=== PATIENT | male | born 1945 | race Caucasian/White ===

== ENCOUNTER 2017-03-22 14:09 | Inpatient (IN) | payer MEDICARE, BC ==
[~2017-03-22] VITALS: Ht 172.7 cm; Wt 120.0 kg
--- NOTE | ~2017-03-22 | EKG ---
PATIENT: CHRISTINA COLLINS UNIT #: [id number] Ventricular Rate: 68 BPM Atrial Rate: 68 BPM P-R Interval: 150 ms QRS Duration: 84 ms Q-T Interval: 448 ms QTC Calculation(Bezet): 476 ms P Pep: 112 degrees Calculated R Pep: -11 degrees Calculated T Pep: 47 degrees Diagnosis Line: Normal sinus rhythm Diagnosis Line: Normal ECG Diagnosis Line: When compared with ECG of 06-JUN-2013 13:16, Diagnosis Line: (unconfirmed) Diagnosis Line: QT has lengthened Diagnosis Line: Confirmed by RUTH MENDIOLA MD ([id number]) on Diagnosis Line: 03/22/2017 5:11:45 PM INTERPRETING MD: MARLENA BUSTILLO
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
--- NOTE | ~2017-03-22 | EKG ---
PATIENT: CHRISTINA COLLINS UNIT #: [id number] Ventricular Rate: 71 BPM Atrial Rate: 71 BPM P-R Interval: 168 ms QRS Duration: 84 ms Q-T Interval: 424 ms QTC Calculation(Bezet): 460 ms P Vichy: 65 degrees Calculated R Vichy: 7 degrees Calculated T Vichy: 40 degrees Diagnosis Line: Normal sinus rhythm Diagnosis Line: Normal ECG Diagnosis Line: When compared with ECG of 23-MAR-2017 05:38, Diagnosis Line: No significant change was found Diagnosis Line: Confirmed by KIKI CIFUENTES MD ([id number]) on Diagnosis Line: 03/24/2017 3:54:16 PM INTERPRETING MD: WON
--- NOTE | ~2017-03-22 | OR ---
Unit #: [id number] #: [id number] Patient: CHRISTINA COLLINS [id number] [address] [place], [place] [address] [id number] I MR#: [id number] NAME: CHRISTINA COLLINS. ROOM: [facility] Date of Procedure: 03/24/2017 Admission Date: 03/22/2017 Surgeon: Faizan Ambrocio Jr., M.D. : 1945 Attending Physician: Rodney Ornelas M.D. OPERATIVE REPORT INDICATIONS FOR PROCEDURE The patient is a 72-year-old white male, who was admitted complaining of severe chest pain, who was worked up noted to have evidence of probably acute cholecystitis with inflammatory changes around the gallbladder, also questioned gallstones. He is brought to the operating room at this time for laparoscopic cholecystectomy, understands the procedure including the risks, including that of common duct injury, biliary leak, and bleeding, and intra-abdominal organ injury, and consents. PREOPERATIVE DIAGNOSES Chronic cholecystitis with cholelithiasis. POSTOPERATIVE DIAGNOSES Acute gangrenous cholecystitis with wrapped gallbladder and also noted was a chronic incarcerated umbilical hernia, multiple adhesions in the lower abdomen. ANESTHESIA General with endotracheal intubation and 0.5% Marcaine with epinephrine locally in the port sites. PROCEDURES PERFORMED Laparoscopic cholecystectomy with lysis of adhesions and drainage of the right upper quadrant. DESCRIPTION OF PROCEDURE The patient was positioned in supine position. After being anesthetized and intubated, he was prepped and draped in routine fashion for laparoscopic cholecystectomy. A small 0.5 cm incision was made in the right lateral abdominal wall area and a 5-mm Optiview was introduced in the abdomen. The abdomen was then inflated with CO2 gas. The camera was introduced in the abdomen. There was no evidence of any injury related to introduction of the port or the camera. The abdomen was inflated and intra-abdominal exploration was carried out. The patient was noted to have multiple adhesions in the lower part of the abdomen as well as chronic incarcerated umbilical hernia and an acute wrapped gallbladder. The camera was then switched to a 5-mm port was placed, which was displaced to the right of the umbilicus under direct visualization and additional 5-mm port was placed in the right lateral abdominal wall area and an 11-mm port just to the right of the upper midline. The wrap was then removed from the gallbladder using hook scissors as well as blunt dissection. The gallbladder was aspirated. Green bile was obtained. The Unit #: [id number] #: [id number] Patient: CHRISTINA COLLINS gallbladder was then lifted and dissection was carried out in the triangle of Calot. There was significant acute inflammation in the area of the triangle of Calot, but the cystic duct was easy to visualize with only approximately 1 to 2 mm in diameter. It was isolated, hemoclipped x4, and divided. The cystic artery was identified, hemoclipped x3, and divided. The gallbladder was then removed from its bed with the hook cautery using a current of 20 and after it was released, it was placed in EndoCatch bag and brought out through the larger port site and the port replaced. Subhepatic space checked. There was a small amount of oozing, which was controlled within the bed of the gallbladder with the hook cautery and after total hemostasis was achieved and the right upper quadrant irrigated, it was felt drain was indicated. A 10 mm Joseph-Soler drain was placed in the subhepatic space and brought out through the lateral port site as routine. After this was complete, again the liver bed was checked. There was no evidence of any significant bleeding. The ports were then removed. CO2 expressed from the abdomen. The port sites were injected with 0.5% Marcaine with epinephrine. The fascia in the larger port site approximated with several [id number] 0 Vicryl sutures. The wounds were irrigated. After hemostasis achieved with Bovie cautery, skin edges were approximated with stainless-steel skin clips and skin stapling device. Sterile dressings were applied externally. Estimated blood loss less than 150 mL. The patient received less than 2000 mL crystalloid solution during the procedure. Sponges and instruments counts were correct x3. There was one 10-mm Joseph-Soler drain used in the subhepatic space on the right and no complications. The patient was taken to the recovery room with stable vital signs in satisfactory condition. Dictated by... Faizan Ambrocio Jr., M.D. JMB/nay TD: 03/24/2017 17:39 JOB #: [id number] CC: Rodney Ornelas M.D. OPERATIVE REPORT Page 1 of 1 X Faizan Ambrocio MD PROCEDURE OPERATIVE NOTE
--- NOTE | ~2017-03-22 | CO ---
Unit #: [id number] #: [id number] Patient: CHRISTINA COLLINS [id number] [address] [place], [place] [address] [id number] I MR#: [id number] NAME: CHRISTINA COLLINS. ROOM: 555 Age: 72 Sex: M Admission Date: 03/22/2017 : 1945 Attending Physician: Rodney Ornelas M.D. CONSULTATION REPORT REASON FOR ADMISSION Chest pain. HISTORY OF PRESENT ILLNESS The patient is a 72-year-old, white male, who is a patient of Dr. Seo, for history of coronary artery disease, status post stent to mid LAD and mid left circumflex in 2013. EF greater than 55% on echo from 2013. Left MCA, CVA status post thrombectomy in 2014 with some residual as well as some weakness, PAF, on chronic Coumadin, hypertension, hyperlipidemia, chronic diastolic heart failure, obesity with recent weight loss, that is planned through diet and exercise, nonsmoker, obstructive sleep apnea in Lexiscan Cardiolite in 06/2016, that showed no ischemia with an EF of 67%. The patient presented to the [facility] ED with complaint of chest pain, that he states woke him up at 1:30 in the morning. Two nights ago, it was a stabbing chest pain to the left chest, that lasted all day and was worse with movement and deep breathing. He also did say he was short of breath, nauseated, and lightheaded, but denied any diaphoresis or syncope. The patient states that he took two nitroglycerin, which did lessen the pain some, but it did not alleviate his pain totally. He also denies having any swelling, fevers, chills, or vomiting. Cardiac cath in September 2013, left circumflex 99% stenosis before the origin of the posterior marginal branch, LAD was 80% to 90%, EF was 60%, where he had a mid LAD stent and a left circumflex stent placed at that time. Echo September 2013 showed left ventricle mildly dilated, mild asymmetric LVH, EF greater than 55%. Right ventricle, mildly dilated. Left atrium, mildly dilated. Mild to moderate MR. Moderate TR. RVSP of 30 to 40 mmHg. Moderate . PAST MEDICAL HISTORY 1. Cardiac cath, September 2013, showed left circumflex 99% before the origin of the first posterior marginal branch. LAD was 90% with an EF of 60%. At that time, the patient had a stent to the LAD as well as left circumflex lesions. 2. Echo, September 2013; LV mildly dilated, mild asymmetric LVH. EF, greater than 55%. RV, mildly dilated. Left atrium, mildly dilated. Mild to moderate MR. Moderate TR. RVSP of 30 to 40. Moderate . 3. Coronary artery disease. 4. Left MCA CVA, status post thrombectomy in 2014 with some dysphagia as well as weakness. 5. PAF, on Coumadin. 6. Hypertension. Unit #: [id number] #: [id number] Patient: CHRISTINA COLLINS 7. Hyperlipidemia. 8. Chronic diastolic heart failure. 9. Obesity with planned weight loss. 10. Nonsmoker. 11. Normal Lexiscan Cardiolite stress test in 06/2016 with an EF of 67%. 12. Obstructive sleep apnea. PAST SURGICAL HISTORY Includes; 1. Left wrist surgery. 2. Skin cancer removed from his face. SOCIAL HISTORY The patient lives at home, where he states the family is there with him. He is a lifelong nonsmoker. He denies any alcohol or illicit drug abuse. The patient states that he does some walking, but very minimal as he does get tired and has to sit down. He uses a cane and a walker, but does not get out for regular exercise. ALLERGIES No known drug allergies. HOME MEDICATIONS 1. Crestor 40 mg p.o. daily. 2. Amantadine 100 mg p.o. twice a day. 3. Propranolol ER 60 mg p.o. daily. 4. Coumadin 5 mg p.o. daily. 5. Lantus 30 units subcutaneous twice a day. 6. Singulair 10 mg p.o. daily. 7. Celexa 20 mg p.o. daily. 8. Zestril 20 mg p.o. daily. REVIEW OF SYSTEMS 10-point review of systems negative except for what is listed above in the HPI. PHYSICAL EXAMINATION GENERAL: This is a 72-year-old, white male, who is alert and oriented x3, in no apparent distress. VITAL SIGNS: Blood pressure 124/60, temperature 98.2, pulse 71, and respirations 19. HEENT: Pupils are equal, round, and reactive. Oral mucosa moist. NECK: No JVD. No thyromegaly. No lymphadenopathy. No carotid bruits. HEART: S1 and S2. No S3 or S4. No clicks, no rubs, no murmurs. CHEST: Reproducible pain to the anterior chest wall on palpation. LUNGS: Clear. ABDOMEN: Soft. Bowel sounds positive. Nontender. Nondistended. EXTREMITIES: Non-swelling. NEUROLOGICAL: No neuro deficits noted. DIAGNOSTIC STUDIES LABORATORY RESULTS: Troponin, less than 0.05, then, less than 0.03 and 0.03. D-dimer 871. BNP 191. White count 18.4, hemoglobin 13, hematocrit 39.6, and platelets are 231. Sodium 135, potassium 3.3, chloride 100, CO2 of 27, glucose 154, BUN 14, and creatinine 0.9. IMAGING STUDIES: CT angio of the chest showed no evidence of PE. Chest x-ray showed mild cardiomegaly, but no active disease. Unit #: [id number] #: [id number] Patient: CHRISTINA COLLINS CARDIOVASCULAR STUDIES: EKG showed sinus rhythm with no acute ST wave abnormalities with a rate of 73. IMPRESSION 1. Chest pain. Most likely, chest wall tenderness as it is reproducible with palpation. 2. Coronary artery disease, status post stent to the mid LAD and mid left circumflex in 2013. 3. LVEF of greater than 55% in 2013. 4. Valvular heart disease with [id number]-bc-[id number] MR, moderate TR, moderate . 5. Coronary artery disease. 6. Left MCA stroke in 2014, status post thrombectomy. 7. Paroxysmal atrial fibrillation, on Coumadin, came in with subtherapeutic INR. 8. Chronic diastolic heart failure. 9. Obesity with planned weight loss. 10. Hypertension and hyperlipidemia. 11. Lifelong nonsmoker. 12. History of normal Lexiscan Cardiolite stress test in 06/2016. 13. Obstructive sleep apnea. PLAN 1. We will obtain a UA and culture as when discussing with the patient. He did complain of some burning with urination. We will obtain 2D echo and Doppler to evaluate the valve and possible worsening of aortic stenosis. We will give potassium supplementation as he is mildly hypokalemic. 2. We will discontinue nitroglycerin paste as this pain is likely not cardiac in nature since it is reproducible to the chest wall with palpation and sharpen in nature. We will restart the patient on Coumadin with a 7.5 mg dose today and continue Lovenox bridge until the patient is therapeutic. Protonix 40 mg p.o. twice a day to see if any of his symptoms are GI related. We will start Tylenol for pain as needed. We will check troponin, CBC, EKG, PT/INR, BMP tomorrow morning. Further recommendations pending the current treatment workup and results of testing. The patient has been discussed about the plan of care and verbalizes understanding. Dictated by... Monet Brooke APRN for Binh Becker/nay TD: 03/24/2017 07:14 JOB #: [id number] CC: Veronica Tapia M.D. Unit #: [id number] #: [id number] Patient: KARINACHRISTINA CONSULTATION REPORT Page 1 of 1 X X CONSULTATION REPORT
--- NOTE | ~2017-03-22 | EKG ---
PATIENT: CHRISTINA COLLINS UNIT #: [id number] Ventricular Rate: 73 BPM Atrial Rate: 73 BPM P-R Interval: 182 ms QRS Duration: 82 ms Q-T Interval: 412 ms QTC Calculation(Bezet): 453 ms P Lapoint: 53 degrees Calculated R Lapoint: 26 degrees Calculated T Lapoint: 46 degrees Diagnosis Line: Normal sinus rhythm Diagnosis Line: Normal ECG Diagnosis Line: When compared with ECG of 22-MAR-2017 14:13, Diagnosis Line: No significant change was found Diagnosis Line: Confirmed by SHEKHAR ASHRAF MD ([id number]) on Diagnosis Line: 03/24/2017 7:12:21 AM INTERPRETING ANTHONY CALIX
--- NOTE | ~2017-03-22 | BMI ---
[facility] Nutrition Therapy DATE: 03/23/17 Patient: CHRISTINA COLLINS Physician: FELICITA Address: [address] [place] [address] Room/Bed: [address] [place] [address], Zip: [place] [address] Admit Date: 03/22/17 Date of : [birth year] Height: 5 8 Weight: 264 120 HIGH BMI NOTE: DX: 72 y/o male admitted for chest pain ANTHROPOMETRICS: ht: 5'8" wt: 264@ (120 kg) BMI 40 DIET: 1. Consistent carbohydrate INTERVENTION: 1. Consistent carbohydrate diet RECOMMENDATIONS: 1. Add Healthy Heart to current Consistent Carbohydrate diet order in order to promote gradual weight loss towards a healthy BMI. RD will f/u per protocol. Respectfully, BELLE ANRDES, commercial intern Ella Fontanez RD, LD Food and Nutritional Services [facility] cc: client file
--- NOTE | ~2017-03-22 | DS ---
Unit #: [id number] #: [id number] Patient: CHRISTINA COLLINS [id number] [address] [place], [place] [address] [id number] I MR#: [id number] NAME: CHRISTINA COLLINS. ROOM: 555 Age: 72 Sex: M Admission Date: 03/22/2017 : 1945 Discharge Date: 03/27/2017 Attending Physician: Rodney Ornelas M.D. Primary Care Physician: No Primary Care Physician DISCHARGE SUMMARY PRINCIPAL DISCHARGE DIAGNOSES 1. Acute cholecystitis with gangrene. 2. Status post laparoscopic cholecystectomy, March 24, 2017. 3. Atypical chest pain. 4. Moderate aortic stenosis. 5. Pulmonary hypertension. 6. Coronary artery disease. 7. Paroxysmal atrial fibrillation. 8. Hypertension. 9. Chronic diastolic congestive heart failure. 10. Mild mitral stenosis. 11. Old cerebrovascular accident. 12. Morbid obesity. 13. Type 2 diabetes mellitus. PROCEDURE Laparoscopic cholecystectomy, March 24, 2017. CONSULTANTS 1. Dr. Tapia from cardiology. 2. Dr. Ambrocio from [facility]. REASON FOR HOSPITALIZATION A 72-year-old obese white male with history of coronary artery disease, type 2 diabetes mellitus, mitral regurgitation, aortic stenosis, old CVA, expressive dysphagia, diastolic CHF, hyperlipidemia, hypertension, paroxysmal atrial fibrillation, noncompliant with Coumadin therapy presented to the emergency room with two episodes of chest pain, one relieved with nitroglycerin. Pain was very atypical. It was basically his entire anterior chest and at the abdominal area. It seemed to be worse with deep breath, increased with range of motion. He had no trauma, no hemoptysis, fever, cough, shortness of air, or any other symptoms associated with it. In the ER, his EKG and cardiac enzymes were normal. D-dimer was elevated. CT scan was performed and the patient was admitted. HOSPITAL COURSE The patient was placed on full-dose Lovenox pending results of his CT scan and followup cardiac enzymes. Cardiac enzymes remained within normal limits. CT angiogram of the chest showed no pulmonary embolism or dissection. There was a hydropic gallbladder containing stones and a trace amount of left pleural fluid as well as calcification of the LAD. At that point, [facility] were consulted. His CBC suddenly showed a white count of 18.2, again consistent with an infected gallbladder. He underwent gallbladder ultrasound that showed the Unit #: [id number] #: [id number] Patient: CHRISTINA COLLINS gallbladder to be distended measuring 5.9 cm. There was abnormal wall thickening of about 6 mm, trace amount of fluid. Gallstones were not seen on the ultrasound, felt to be secondary to gas artifact. In any case, the patient was seen by cardiology, okayed for surgery. Echo was performed, technically difficult study, EF 55%, mild dilation of the left atrium, mildly enlarged right atrium, moderately dilated right ventricle, calcified aortic leaflets with moderate aortic stenosis, [id number]-[id number] tricuspid regurgitation, heavy mitral annular calcifications with mild mitral stenosis, right ventricular systolic pressure 57. Patient then underwent surgery on the . He tolerated surgery well. He had a low blood sugar last night and his insulin has been adjusted. His blood pressure is somewhat high this morning and is being addressed before discharge. If his blood pressure comes down after clonidine and increase in dose of Zestril, he will be discharged home. He will be on a healthy heart diet as tolerates. DISCHARGE MEDICATIONS 1. Coumadin 5 mg daily. 2. Celexa 20 mg daily. 3. Amantadine 100 mg b.i.d. 4. Inderal LA 60 mg daily. 5. Crestor 40 mg daily. 6. Zestril 40 mg daily. 7. Lantus 30 units subcutaneous q.a.m. and 20 subcutaneous q.p.m. 8. Singulair 10 mg daily. 9. Enteric coated aspirin 81 mg daily. 10. Prescription for Percocet 5/325 one q.4 hours p.r.n. for pain #18 with no refills. FOLLOWUP Followup in the office next week with a pro time. He will follow up with Dr. Ambrocio in his office in one week. Dictated by... Rodney Ornelas M.D. RENNY/carine TD: 03/27/2017 12:56 JOB #: [id number] DISCHARGE SUMMARY Page 1 of 1 X Rodney Ornelas MD X DISCHARGE SUMMARY
--- NOTE | ~2017-03-22 | CT16 ---
[facility] A Service of [facility] & [facility] / [facility] RADIOLOGY TEXT RESULTS PATIENT: CHRISTINA COLLINS LOCATION: B 555-01 : 46 UNIT #: [id number] AGE: [address]: Rodney Ornelas MD SEX: M ORDER DR: [id number] [facility] [address]. [place], [place] [address] [id number] MR#: [id number] Acc #: [id number] NAME: CHRISTINA COLLINS. : 1945 SEX: M STUDY DATE/TIME: 03/22/2017 21:19 UNIT: [facility] ROOM: [facility] STUDY DESCRIPTION: CT Angio Chest for PE Attending Physician: Rodney Ornelas M.D. Ordering Physician: Booker Qureshi D.O. Primary Care Physician: No Primary Care Physician MEDICAL IMAGING REPORT This report is preliminary unless electronic signature is present EXAM Chest CTA 03/22/2017 at 2119 INDICATION Elevated D-dimer today. Chest pain that started this morning. TECHNIQUE Axial images were obtained through the chest following IV contrast administration. 3D reformats were obtained. This CT exam was performed with one or more of the following radiation dose reduction techniques: Automatic exposure control, adjustment of mA and/or kV according to patient size, and iterative reconstruction. COMPARISON Comparison made with 10/12/2013. FINDINGS There is no pulmonary embolism or aortic dissection. There is atherosclerotic disease and coronary artery disease. Coronary artery disease is particularly evident in the LAD. No adenopathy is seen. There is cardiomegaly. No pericardial effusion. There is a trace amount of left pleural fluid. There is some dependent atelectasis in both lung bases. Granulomatous calcifications noted in the lingula. Upper abdomen shows a hydropic gallbladder containing stones. There is a trace amount of free fluid adjacent to the liver. Followup with gallbladder ultrasound is recommended. IMPRESSION 1. No pulmonary embolism or aortic dissection. 2. Hydropic gallbladder containing stones. Trace amount of free fluid adjacent to the liver. Gallbladder ultrasound is recommended for follow up as cholecystitis is not excluded. 3. Atherosclerotic disease with coronary artery disease, [facility] A Service of [facility] / [facility] RADIOLOGY TEXT RESULTS PATIENT: CHRISTINA COLLINS LOCATION: C5 555-01 : 46 UNIT #: [id number] AGE: [address]: oRdney Ornelas MD SEX: M ORDER DR: particularly in the LAD. 4. A trace amount of left pleural fluid. Dictated by... Jt Arevalo Jr., M.D. THIS IS AN ELECTRONICALLY VERIFIED REPORT Jt Arevalo Jr., M.D. at 03/23/2017 9:33 PM RACHEL/fran TD: 03/23/2017 09:31 JOB #: [id number] MEDICAL IMAGING REPORT Page 1 of 1 COPY
--- NOTE | ~2017-03-22 | CR72 ---
[facility] A Service of [facility] & [facility] RADIOLOGY TEXT RESULTS PATIENT: CHRISTINA COLLINS LOCATION: [facility] [id number] : 46 UNIT #: [id number] AGE: [address]: Rodney Ornelas MD SEX: M ORDER DR: [id number] [facility] [address]. [place], [place] [address] [id number] I MR#: [id number] Acc #: [id number] NAME: CHRISTINA COLLINS. : 1945 SEX: M STUDY DATE/TIME: 03/22/2017 15:15 UNIT: [facility] ROOM: [facility] STUDY DESCRIPTION: CR Chest Single View Portable Attending Physician: Rodney Ornelas M.D. Ordering Physician: Booker Qureshi D.O. MEDICAL IMAGING REPORT This report is preliminary unless electronic signature is present EXAM Portable chest HISTORY Chest pain for the past day TECHNIQUE Single AP view of the chest was obtained compared with 07/09/2016 FINDINGS Heart size is mildly enlarged. The aorta is mildly ectatic. Both lungs are fully expanded clear with normal vascular markings and no pleural fluid is seen. IMPRESSION Mild cardiomegaly. No active disease Dictated by... Jt Zazueta M.D. THIS IS AN ELECTRONICALLY VERIFIED REPORT Jt Zazueta M.D. at 03/23/2017 6:59 AM EREN/aramis TD: 03/22/2017 22:39 JOB #: [id number] MEDICAL IMAGING REPORT Page 1 of 1 COPY
--- NOTE | ~2017-03-22 | CO ---
Unit #: [id number] #: [id number] Patient: CHRISTINA COLLINS [id number] [address] [address] [id number] I MR#: [id number] NAME: CHRISTINA COLLINS. ROOM: 555 Age: 72 Sex: M Admission Date: 03/22/2017 : 1945 Attending Physician: Rodney Ornelas M.D. Primary Care Physician: Primary Care Physician No Consultation Date: 03/23/2017 CONSULTATION REPORT REASON FOR CONSULTATION 1. Upper abdominal pain. 2. Cholelithiasis. 3. Possible cholecystitis. Thank you very much for asking us to see Mr. Collins. HISTORY OF PRESENT ILLNESS He is a 72-year-old white male, who was admitted on 03/22/2017. He presents with 36- to 48-hour history of lower chest pain and upper abdominal pain. It is worse with a deep breath. It is worse with motion. He has no GI bleeding. No or pulmonary symptoms. Denies any hemoptysis. He denies any jaundice. He was evaluated in the emergency room and a CT angiogram revealed the patient to have no pulmonary embolism or aortic dissection, but was found to have a hydropic gallbladder containing gallstones. There is a trace amount of free pericholecystic fluid. He presents at this time for further evaluation and treatment. ALLERGIES No known medical allergies. MEDICATIONS Please see med rec sheet. PAST SURGICAL HISTORY 1. Cardiac catheterization with angioplasty. 2. Tonsillectomy. 3. Repair of liver laceration per the chart, but the patient denies any abdominal surgery. PAST MEDICAL HISTORY Coronary artery disease, hypertension, CVA, diabetes, morbid obesity, hyperlipidemia, paroxysmal atrial fibrillation, mitral regurgitation, aortic stenosis. SOCIAL HISTORY No tobacco or alcohol use. FAMILY HISTORY Noncontributory. IMMUNIZATION STATUS Unknown. PHYSICAL EXAMINATION Unit #: [id number] #: [id number] Patient: CHRISTINA COLLINS GENERAL: Well-developed, well-nourished white male, in no apparent distress. VITAL SIGNS: Afebrile. Vital signs stable. NECK: Supple. No thyromegaly or adenopathy. HEENT: Sclerae nonicteric. Extraocular movements are intact. BACK: No CVA or spinous tenderness. ABDOMEN: Examination of the patient's abdomen revealed it to be nontender in the lower abdomen on the left side, but tender in the right upper quadrant with mild guarding, but no rebound, peritoneal signs, or masses. EXTREMITIES: The patient has some venous stasis disease in the right lower extremity, but no other erythema or induration. DIAGNOSTIC STUDIES LABORATORY RESULTS: CMP reveals the patient to have a glucose of 154, BUN 14, creatinine 0.9, potassium 3.3 and normal liver function studies. The patient's PT and PTT is 12 and 31.2. White count is 18.4 with a hemoglobin of 13 and hematocrit 39.6. IMPRESSION A 72-year-old white male with right upper quadrant pain and discomfort as well as on CT scan, a hydropic gallbladder with gallstones and small amount of pericholecystic fluid. We feel that the patient most likely has cholecystitis. We have recommended Zosyn 3.375 g IV piggyback q.6 hours. Hold Lovenox for now, discontinue Coumadin and we will proceed with laparoscopic cholecystectomy tomorrow. The patient is eaten today. All the risks and benefits of the procedure have been fully explained to the patient in detail including the risk of bleeding, infection, common bile duct injury, choledochojejunostomy, conversion to an open procedure, transfer, , and other risks. He understands completely and requests to proceed. Dictated by... Binh Soares/nay TD: 03/23/2017 17:25 JOB #: [id number] CC: [facility] Veronica Tapia M.D. CONSULTATION REPORT Page 1 of 1 X Denzel Zavala MD X CONSULTATION REPORT
--- NOTE | ~2017-03-22 | HP ---
Unit #: [id number] #: [id number] Patient: CHRISTINA COLLINS [id number] [address] [place], [place] [address] [id number] I MR#: [id number] NAME: CHRISTINA COLLINS. ROOM: 555 Age: 72 Sex: M Admission Date: 03/22/2017 : 1945 Attending Physician: Rodney Ornelas M.D. Primary Care Physician: No Primary Care Physician HISTORY AND PHYSICAL HISTORY OF PRESENT ILLNESS 72-year-old, obese, white male with a history of coronary artery disease, type 2 diabetes mellitus, mitral regurgitation, aortic stenosis, old CVA, expressive dysphasia, diastolic CHF, hyperlipidemia, hypertension, paroxysmal atrial fibrillation, was supposed to be on Coumadin but is noncompliant with his protimes so eventually discontinued it. In any case, he presents to the emergency room with two episodes of chest pain, relieved with nitroglycerin. He states the chest pain started on the day of admission. It is in his entire chest and upper abdominal area. It is increased with a deep breath, increased with range of motion, increased doing sit-ups. He has had no trauma. He has no hemoptysis, fever or cough, shortness of air or any other symptoms associated with it. In the ER, his EKG and cardiac enzymes were normal. D-dimer was elevated. CT angiogram was done but there is no report anywhere in the handwritten notes or in [facility] and the patient is admitted. ALLERGIES He has no known drug allergies. MEDICATIONS His meds prior to admission: 1. Crestor 40 mg daily. 2. Amantadine 100 mg b.i.d. 3. Inderal LA 60 mg daily. 4. Coumadin, which he is off of. 5. Lantus 30 units subcu b.i.d. 6. Singulair 10 mg daily. 7. Celexa 20 mg daily. 8. Zestril 20 mg daily. 9. He is supposed to also be on enteric coated aspirin 81 mg daily. PAST SURGICAL HISTORY 1. He has a history of cardiac cath with angioplasty x2. 2. Tonsillectomy. 3. Liver laceration that was repaired. PAST MEDICAL HISTORY 1. Coronary artery disease. 2. Hypertension. 3. CVA with expressive dysphasia. 4. Type 2 diabetes mellitus. 5. Morbid obesity. 6. Hyperlipidemia. 7. Diastolic CHF. Unit #: [id number] #: [id number] Patient: CHRISTINA COLLINS 8. Paroxysmal atrial fibrillation. 9. Mitral regurgitation. 10. Aortic stenosis. SOCIAL HISTORY Retired, single. Nonsmoker, nondrinker. No street drug use. FAMILY HISTORY Noncontributory. PHYSICAL EXAMINATION GENERAL: He is awake, alert, oriented x3, in no acute distress. VITAL SIGNS: Afebrile. Pulse 71, respirations 18, blood pressure 124/60, O2 sat 96% on room air. HEENT: Unremarkable. NECK: Supple without JVD, bruits, adenopathy or thyromegaly. CHEST: Clear to auscultation. Tender in the parasternal area and epigastric area diffusely without any rash or bruising. HEART: Regular rate and rhythm with a 3/6 systolic murmur best appreciated at the apex and left upper sternal border. ABDOMEN: Soft, nondistended. Tender in the epigastric area without any guarding or rebound tenderness. Positive bowel sounds and no hepatosplenomegaly. EXTREMITIES: 1+ pitting edema of the right lower extremity with multiple superficial wounds, one on the left top of his right foot and anterior archuleta without any evidence of infection. /RECTAL: Deferred. NEUROLOGICAL: Within normal limits except for the expressive dysphasia. DIAGNOSTIC STUDIES LABORATORY: Cardiac enzymes normal x4 sets. CBC normal. PT and PTT normal. Sodium 133, blood sugar 144, albumin 3.4, BNP 191, D-dimer 871. CARDIOVASCULAR: EKG - within normal limits x2. IMAGING: Chest x-ray - mild cardiomegaly. No active disease. CT angiogram of the chest - no report. IMPRESSION 1. Atypical chest pain which seems to be musculoskeletal. 2. History of coronary artery disease with angioplasty x2. 3. Mitral regurgitation. 4. Aortic stenosis. 5. Hypertension. 6. Obesity. 7. Type 2 diabetes mellitus. 8. Paroxysmal atrial fibrillation. 9. Old CVA. PLAN Review CT scan of the chest. Cardiology is to consult. Note that he had a negative Cardiolite in June of 2016. I am not sure if they are going to repeat this, do a cath or otherwise. May even an echo since it has been awhile since he had one. Further evaluation pending results of Unit #: [id number] #: [id number] Patient: CHRISTINA COLLINS the above. Dictated by Binh Mena/roosevelt TD: 03/23/2017 07:56 JOB #: [id number] HISTORY AND PHYSICAL Page 1 of 1 X Rodney Ornelas MD X HISTORY AND PHYSICAL
[~2017-03-22 14:09] MED LIST: ACETAMINOPHEN PO; ALLEGRA180 MG PO; AMANTADINE100 M1 PO; ASPIRIN PO; ASPIRIN81 M1 PO; ASPIRIN81 MG PO; BACTROBAN15 GM TOP; CAPMIST DM TAB1 EACH PO; CELEXA20 MG PO; CLARITIN10 MG PO; COLACE PO; COMBIVENT INH14.7 GM INH; COUMADIN PO; COUMADIN3 MG PO; COUMADIN5 MG PO; FLOMAX0.4 M1 PO; GLUCOSAMINE; HUMULIN N SUBQ; HUMULIN N VIAL SUBQ; HUMULIN N100 U/ML SQ; HUMULIN N300 U/3 ML; HUMULIN R100 U/ML SUBQ; INDERAL LA60 M1 PO; KEFLEX PO; LANTUS100 U/ML SUBQ; LASIX PO; LASIX80 MG PO; LEVAQUIN PO; LIPITOR40 MG PO; LISINOPRIL10 MG PO; LISINOPRIL20 MG PO; LOMOTIL TABLET1 TAB PO; LOPRESSOR PO; METOPROLOL TAR25 MG PO; MIRALAX; MUCINEX DM1 TAB.SR . PO; MYCOSTATIN15 GM POW EXT; NAPROXEN PO; NITROGLYGERIN0.4 MG SL; NON-ASPIRIN325 MG PO; NOVOLIN N100 U/ML SUBQ; NOVOLIN R100 U/ML; NOVOLIN R100 U/ML SUBQ; NOVOLOG FL100 UNIT/1 SUBQ; NOVOLOG100 U/ML SUBQ; PLAVIX PO; PREDNISONE PO; PRIMIDONE50 MG PO; PROAIR HFA8.5 GM; SERTRALINE HCL100 MG PO; SIMVASTATIN80 MG PO; SINGULAIR PO; SPIRIVA18 MCG INH; SYMBICORT INH; ZAROXOLYN5 MG PO; ZESTORETIC 20-1 EACH PO; ZESTORETIC 20/21 TAB PO; ZETIA PO; ZOCOR PO; ZOLOFT PO
[2017-03-22 16:29] LABS: BASOPHIL# 0.1 X10e3 (0-0.3); BASOPHIL% 0.8 % (0-2.5); EOSINOPHIL# 0.3 X10e3 (0-0.7); EOSINOPHIL% 2.9 % (0.0-7.0); HEMATOCRIT 40.4 % (38.0-50.0); HEMOGLOBIN 13.3 gm/dL (13.0-16.0); LYMPHOCYTE% 20.8 % (17.0-45.0); MEAN CELL VOLUME 82.6 FL (83-96); MEAN CORPUSCULAR HEMOGLOBIN 27.3 PG (28-34); MEAN PLATELET VOLUME 8.5 FL (6.5-11.5); MONOCYTE% 9.9 % (3.0-12.0); NEUTROPHIL# 6.4 X10e3 (1.5-7.1); NEUTROPHIL% 65.6 % (40-75); PLATELET COUNT 244 X10e3 (140-420); RED BLOOD COUNT 4.89 X10e (3.90-5.60); RED CELL DISTRIBUTION WIDTH 16.2 % (11.0-15.5); WHITE BLOOD COUNT 9.7 X10e3 (4.0-10.5)
[2017-03-22 16:39] LABS: POC - CKMB 3.7 ng/mL (0.0-7.9); POC - TROPONIN <0.05 ng/mL (<=0.05)
[2017-03-22 16:47] LABS: DIFF IND NO
[2017-03-22 16:51] LABS: INR 1.1; PARTIAL THROMBOPLASTIN TIME 31.2 SECONDS (23.5-31.3)
[2017-03-22 17:13] LABS: ALBUMIN SERUM 3.4 g/dL (3.5-5.0); BILIRUBIN, DIRECT 0.2 mg/dL (0.0-0.2); BILIRUBIN,INDIRECT 0.4 mg/dL (0.0-0.9); BILIRUBIN,TOTAL 0.6 mg/dL (0.2-2.0); CALCIUM SERUM 8.5 mg/dL (8.4-10.2); GLOM FILT RATE Estimated 75.4 mL/min (>60); POTASSIUM 3.5 mmol/L (3.5-5.1); PROTEIN TOTAL SERUM 6.9 g/dL (6.0-8.3)
[2017-03-22 17:51] LABS: POC - TROPONIN <0.05 ng/mL (<=0.05)
[2017-03-22] MEDS ORDERED: COUMADIN PO (18:00)
[2017-03-22] MEDS ORDERED: AMANTADINE HCL100 MG PO (18:00)
[2017-03-22] MEDS ORDERED: PATIENT'S PHARMACY (18:00)
[2017-03-22] MEDS ORDERED: INDERAL LA PO (18:00)
[2017-03-22] MEDS ORDERED: CRESTOR PO (18:00)
[2017-03-22] MEDS ORDERED: LANTUS SOL100 UNIT/1 SUBQ (18:00)
[2017-03-22] MEDS ORDERED: CELEXA20 M1 PO (18:01)
[2017-03-22] MEDS ORDERED: SINGULAIR PO (18:01)
[2017-03-22] MEDS ORDERED: LISINOPRIL PO (18:01)
[2017-03-22 23:25] LABS: %MB 2.9 % (0.0-4.0); MB 2.1 ng/ml
[2017-03-23 05:42] LABS: CK TOTAL 43 IU/L (36-174)
[2017-03-23 07:11] LABS: BASOPHIL% 0.2 % (0-2.5); HEMATOCRIT 39.6 % (38.0-50.0); LYMPHOCYTE# 1.6 X10e3 (1.0-3.5); LYMPHOCYTE% 8.8 % (17.0-45.0); MEAN CELL VOLUME 82.1 FL (83-96); MEAN CORPUSCULAR HGB CONC 32.9 g/dL (30-36); MEAN PLATELET VOLUME 7.9 FL (6.5-11.5); MONOCYTE% 10.6 % (3.0-12.0); NEUTROPHIL# 14.8 X10e3 (1.5-7.1); NEUTROPHIL% 80.4 % (40-75); PLATELET COUNT 231 X10e3 (140-420); RED BLOOD COUNT 4.82 X10e (3.90-5.60); RED CELL DISTRIBUTION WIDTH 16.2 % (11.0-15.5)
[2017-03-23 07:20] LABS: DIFF IND YES; WHITE BLOOD COUNT 18.4 X10e3 (4.0-10.5)
[2017-03-23 07:28] LABS: BUN/CREATININE RATIO 15.55; CALCIUM SERUM 8.3 mg/dL (8.4-10.2); CREATININE SERUM 0.9 mg/dL (0.6-1.4); GLOM FILT RATE Estimated 85.6 mL/min (>60); POTASSIUM 3.3 mmol/L (3.5-5.1)
[2017-03-23 11:35] LABS: ANISOCYTOSIS SL; PLATELET ESTIMATE NORMAL (NORMAL)
[2017-03-24 06:53] LABS: HEMATOCRIT 37.7 % (38.0-50.0); HEMOGLOBIN 12.5 gm/dL (13.0-16.0); MEAN CELL VOLUME 82.7 FL (83-96); MEAN CORPUSCULAR HEMOGLOBIN 27.4 PG (28-34); MEAN CORPUSCULAR HGB CONC 33.1 g/dL (30-36); MEAN PLATELET VOLUME 8.5 FL (6.5-11.5); RED BLOOD COUNT 4.56 X10e (3.90-5.60); RED CELL DISTRIBUTION WIDTH 16.2 % (11.0-15.5); WHITE BLOOD COUNT 18.2 X10e3 (4.0-10.5)
[2017-03-24 06:59] LABS: INR 1.2; PROTHROMBIN TIME (PATIENT) 13.4 SECONDS (10.0-11.7)
[2017-03-24 07:15] LABS: ALBUMIN SERUM 2.5 g/dL (3.5-5.0); BILIRUBIN,TOTAL 1.1 mg/dL (0.2-2.0); CALCIUM SERUM 8.1 mg/dL (8.4-10.2); GLOM FILT RATE Estimated 75.4 mL/min (>60); POTASSIUM 3.5 mmol/L (3.5-5.1); PROTEIN TOTAL SERUM 5.5 g/dL (6.0-8.3)
[2017-03-25 06:55] LABS: BASOPHIL# 0.1 X10e3 (0-0.3); BASOPHIL% 0.4 % (0-2.5); EOSINOPHIL# 0.2 X10e3 (0-0.7); EOSINOPHIL% 1.8 % (0.0-7.0); HEMOGLOBIN 12.3 gm/dL (13.0-16.0); LYMPHOCYTE% 14.7 % (17.0-45.0); MEAN CELL VOLUME 83.1 FL (83-96); MEAN CORPUSCULAR HEMOGLOBIN 27.6 PG (28-34); MEAN CORPUSCULAR HGB CONC 33.2 g/dL (30-36); MEAN PLATELET VOLUME 8.5 FL (6.5-11.5); MONOCYTE# 1.1 X10e3 (0-1.0); MONOCYTE% 8.1 % (3.0-12.0); NEUTROPHIL# 10.2 X10e3 (1.5-7.1); PLATELET COUNT 228 X10e3 (140-420); RED BLOOD COUNT 4.45 X10e (3.90-5.60); RED CELL DISTRIBUTION WIDTH 16.7 % (11.0-15.5); WHITE BLOOD COUNT 13.6 X10e3 (4.0-10.5)
[2017-03-25 07:02] LABS: DIFF IND NO
[2017-03-25 07:29] LABS: ALBUMIN SERUM 2.6 g/dL (3.5-5.0); BILIRUBIN,TOTAL 0.8 mg/dL (0.2-2.0); BUN/CREATININE RATIO 11.81; CALCIUM SERUM 8.4 mg/dL (8.4-10.2); CREATININE SERUM 1.1 mg/dL (0.6-1.4); GLOM FILT RATE Estimated 67.2 mL/min (>60); POTASSIUM 3.7 mmol/L (3.5-5.1); PROTEIN TOTAL SERUM 6.4 g/dL (6.0-8.3)
[2017-03-26 06:25] LABS: HEMATOCRIT 34.2 % (38.0-50.0); HEMOGLOBIN 11.2 gm/dL (13.0-16.0); MEAN CELL VOLUME 83.1 FL (83-96); MEAN CORPUSCULAR HEMOGLOBIN 27.3 PG (28-34); MEAN CORPUSCULAR HGB CONC 32.8 g/dL (30-36); RED BLOOD COUNT 4.12 X10e (3.90-5.60); RED CELL DISTRIBUTION WIDTH 16.2 % (11.0-15.5); WHITE BLOOD COUNT 9.1 X10e3 (4.0-10.5)
[2017-03-26 07:04] LABS: ALBUMIN SERUM 2.2 g/dL (3.5-5.0); BILIRUBIN,TOTAL 0.6 mg/dL (0.2-2.0); BUN/CREATININE RATIO 12.5; CALCIUM SERUM 8.3 mg/dL (8.4-10.2); CREATININE SERUM 1.2 mg/dL (0.6-1.4); GLOM FILT RATE Estimated 60.5 mL/min (>60); POTASSIUM 3.7 mmol/L (3.5-5.1); PROTEIN TOTAL SERUM 5.8 g/dL (6.0-8.3)
[2017-03-26 15:24] LABS: INR 1.2; PROTHROMBIN TIME (PATIENT) 12.9 SECONDS (10.0-11.7)
[2017-03-27 05:34] LABS: INR 1.2; PROTHROMBIN TIME (PATIENT) 12.7 SECONDS (10.0-11.7)
[2017-03-28 05:29] LABS: INR 1.2; PROTHROMBIN TIME (PATIENT) 13.4 SECONDS (10.0-11.7)
[2017-03-28] MEDS ORDERED: ASPIRIN81 M2 PO (07:16)
[2017-03-28] MEDS ORDERED: PERCOCET5/325 PO (07:17)
[2017-03-28] MEDS ORDERED: SYMMETREL100 MG PO (07:49)
[2017-03-28] MEDS ORDERED: ATRAC-TAIN142 GM EXT (07:49)
== END 2017-03-28 12:05 | disposition home health service (06) | DRG 418 ==
LOC: CED 14:09 → C5B 18:25 → CEDOF 18:25 → C5B 18:25 → CEDOF 19:12 → C5B 19:12 → CED 19:12 → C5B 21:16 → CEDOF 21:16 → CED 03-26 08:57 → CEDOF 03-26 08:57 → C5B 03-26 08:57
PROVIDERS: Emergency Medicine; Internal Medicine; Internal Medicine Cardiovascular Disease; Nurse Practitioner Family; Surgery
PROC: 0FT44ZZ Resection of Gallbladder, Percutaneous Endoscopic Approach (ICD-10-PCS; principal; 2017-03-26)
PROC: 0W9G4ZZ Drainage of Peritoneal Cavity, Percutaneous Endoscopic Approach (ICD-10-PCS; 2017-03-26)
PROC: B32TYZZ Computerized Tomography (CT Scan) of Left Pulmonary Artery using Other Contrast (ICD-10-PCS; 2017-03-26)
PROC: B32SYZZ Computerized Tomography (CT Scan) of Right Pulmonary Artery using Other Contrast (ICD-10-PCS; 2017-03-26)
PROC: B24BZZZ Ultrasonography of Heart with Aorta (ICD-10-PCS; 2017-03-26)
DX: K80.00 Calculus of gallbladder with acute cholecystitis without obstruction (principal); K82.1 Hydrops of gallbladder; I27.2 Other secondary pulmonary hypertension; K42.0 Umbilical hernia with obstruction, without gangrene; I11.0 Hypertensive heart disease with heart failure; I50.32 Chronic diastolic (congestive) heart failure; Z68.41 Body mass index [BMI] 40.0-44.9, adult; K66.0 Peritoneal adhesions (postprocedural) (postinfection); R07.89 Other chest pain; I08.3 Combined rheumatic disorders of mitral, aortic and tricuspid valves; I25.10 Atherosclerotic heart disease of native coronary artery without angina pectoris; I48.0 Paroxysmal atrial fibrillation; Z79.01 Long term (current) use of anticoagulants; Z86.73 Personal history of transient ischemic attack (TIA), and cerebral infarction without residual deficits; E66.01 Morbid (severe) obesity due to excess calories; E11.9 Type 2 diabetes mellitus without complications; Z79.4 Long term (current) use of insulin; E78.5 Hyperlipidemia, unspecified; Z91.14 Patient's other noncompliance with medication regimen; G47.33 Obstructive sleep apnea (adult) (pediatric)
CPT/HCPCS: 36415; 71010; 71275; 76705; 80048; 80053; 80076; 82550; 82553; 82947; 83735; 83880; 84484; 85025; 85027; 85379; 85610; 85730; 88304; 93005; 93306; 94760; 96374; 96375; 97116; 97162; 97166; 97530; 97535; 99285; G8978-GP; G8979-GP; G8987-GO; G8988-GO; J1650; J1815; J2270; J2405; J2543; J2710; J3010; Q9967